=== PATIENT | male | born 1975 | race Caucasian/White ===

== ENCOUNTER 2017-08-07 20:54 | Emergency (ER) | payer SELFPAY ==
[2017-08-07] MEDS ORDERED: DIPHTH,PERTUSS(ACELL),TET VAC 0.5 ML VIAL IM ONE ×2 (21:41→22:36)
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
[2017-08-07 22:04] LABS: Hematocrit 42.7 % (42.0-52.0); Hemoglobin 14.8 gm/dL (13.5-18.0); Mean Cell Volume 93.8 fl (78-100); Mean Corpuscular Hemoglobin 32.5 pg (27-31); Mean Corpuscular Hgb Conc 34.7 g/dl (32-36); Mean Platelet Volume 9.9 fl (6.0-9.5); Neutrophil # 2.6 K/mm3 (1.3-6.0); Neutrophil % 45.9 % (42-75.0); Platelet Count 128 K/mm3 (150-450); Red Blood Count 4.55 M/mm3 (4.7-6.0); Red Cell Distribution Width 12.5 % (11.5-14.0); White Blood Count 5.6 K/mm3 (4.0-10.5)
[2017-08-07 22:12] LABS: Prothrombin Time (Patient) 9.8 Seconds (9.4-11.4)
[2017-08-07 22:14] LABS: INR 0.94 INR (0.90-1.10)
[2017-08-07 22:15] LABS: Albumin * 4.1 gm/dl (3.4-5.0); Anion Gap 13.2 mmol/L (6.8-13.8); BUN/Creatinine Ratio 11.9 (9.0-21.6); Bilirubin, Total 0.4 mg/dL (0.0-1.1); Ca. Corrected For Albumin 8.7 mg/dL (8.4-10.2); Calcium * 9.1 mg/dL (7.9-10.9); Carbon Dioxide 30.3 mmol/L (24-32.6); Potassium 4.5 mmol/L (3.4-4.6); Total Protein 8.6 gm/dL (6.2-8.2)
[2017-08-07 22:58] VITALS: BP 144/92
[2017-08-07] MEDS ORDERED: NORMAL SALINE 1,000 ML IV ONE (23:16)
== END 2017-08-08 00:21 | disposition home or self-care (01) ==
LOC: ER 20:54
PROC: 0CQ0XZZ Repair Upper Lip, External Approach (ICD-10-PCS; principal; 2017-08-07)
DX: S02.2XXA Fracture of nasal bones, initial encounter for closed fracture (principal); S01.511A Laceration without foreign body of lip, initial encounter; Y04.2XXA Assault by strike against or bumped into by another person, initial encounter; Y93.89 Activity, other specified; Y92.59 Other trade areas as the place of occurrence of the external cause; Z23 Encounter for immunization
CPT/HCPCS: 12052; 36415; 70450; 70486; 72125; 73130; 80053; 85025; 85610; 90471; 90715; 99285; G0481